=== PATIENT | male | born 1935 | race Caucasian/White ===

== ENCOUNTER 2017-08-23 03:58 | Emergency (ER) | payer MEDICARE, OTHER ==
[2014-12-08 15:04] VITALS: BMI 33.0
[~2017-08-23 03:58] MED LIST: ACETAMINOPHEN325 MG PO; GLUCOPHAGE500 MG PO; IPRAT-ALBUT 0.5-3 ML UPD; LEVAQUIN 5500 MG/100 PO; LEVAQUIN500 MG PO; TESSALON PERLE100 MG PO; ZYRTEC10 MG PO
[2017-08-23 04:41] LABS: BASOPHILS 0.4 % (0-2); EOSINOPHILS 1.6 % (0-7); HEMATOCRIT 42.4 % (42.0-54.0); HEMOGLOBIN 14.6 g/dL (13.5-17.5); IMMATURE GRANULOCYTES 0.2 % (0-5); LYMPHOCYTES 15.5 % (15-50); MCH 31.7 pg (26.0-34.0); MCHC 34.4 g/dL (31.0-37.0); MEAN PLATELET VOLUME 10.4 fL (7.4-10.4); MONOCYTES 7.1 % (2-11); NEUTROPHILS 75.2 % (40-80); RBC 4.61 10x6/uL (4.20-6.10); RDW 13.1 % (11.5-14.5); WBC 9.5 10x3/uL (4.8-10.8)
[2017-08-23 04:42] LABS: PLATELET COUNT 126 10x3/uL (130-400)
[2017-08-23 04:54] LABS: ALBUMIN 3.3 g/dL (3.4-5.0); ANION GAP 15.9 mmol/L (8-16); BILIRUBIN - TOTAL 1.71 mg/dL (0.2-1.3); CARBON DIOXIDE 23.1 mmol/L (21.0-32.0); CREATININE - SERUM 1.7 mg/dL (0.6-1.3)
[2017-08-23 05:17] LABS: APPEARANCE CLEAR (CLEAR); COLOR YELLOW (YELLOW); GLUCOSE 250 mg/dL (NEGATIVE); NITRITE NEGATIVE (NEGATIVE); PROTEIN TRACE mg/dL (NEGATIVE); SPECIFIC GRAVITY 1.025 (1.005-1.020)
[2017-08-23 05:18] LABS: BILIRUBIN NEGATIVE (NEGATIVE); KETONE NEGATIVE (NEGATIVE); UROBILINOGEN NORMAL (NORMAL)
[2017-08-23 05:20] LABS: BACTERIA FEW /hpf (NONE SEEN); EPITHELIAL CELLS 0-5 /hpf (0-5); WHITE CELLS - URINE 0-5 /hpf (0-5)
== END 2017-08-23 06:35 | disposition home or self-care (01) ==
LOC: D.ER 03:58
PROVIDERS: Emergency Medicine
DX: N23 Unspecified renal colic (principal); N13.30 Unspecified hydronephrosis; N17.9 Acute kidney failure, unspecified; N39.0 Urinary tract infection, site not specified; E11.9 Type 2 diabetes mellitus without complications

== ENCOUNTER → 2019-04-16 08:06 | Outpatient (CLI) | payer MEDICARE, OTHER ==
[2014-12-08 15:04] VITALS: BMI 33.0
== END | disposition home or self-care (01) ==
LOC: D.HCCARDIO 08:06
PROVIDERS: ATTEND Internal Medicine Cardiovascular Disease
DX: R06.09 Other forms of dyspnea (principal)

== ENCOUNTER → 2021-02-04 12:28 | Day surgery (SDC) | payer MEDICARE, OTHER ==
[2014-12-08 15:04] VITALS: BMI 33.0
--- NOTE | 2021-02-03 14:23 | NUR ---
CONFIRMED PT APPT TOMORROW ARRIVAL: 1234
--- NOTE | ~2021-02-04 | HEMODYNAMI ---
PATIENT:BERT MOLINA MEDICAL RECORD: [id number] : 33 LOCATION:[facility] ADMISSION DATE: 02/04/21 Generatedon:113:33 Patient name: BERT MOLINA Patient #: [id number] SSN: : [id number] Date of study: 02/04/2021 Page: Of Hemodynamic Procedure Report Patient Data Patient Demographics First Name: BERT Gender: Male Last Name: JESSE : 1935 Middle Initial: E Age: 85 year(s) Patient #: [id number] Race: Unknown Additional ID: [id number] Contact details [address]: [address] [place] [address] State: [place] City: [place] Zip code: [address] Admission Admission Data Admission Date: 02/04/2021 Admission Time: 12:28 Procedure Procedure Types Cath Procedure Peripheral Cath Diagnostic Procedure Miscellaneous Aspiration/Injection (Joint) Procedure Description Procedure Date Procedure Date: 02/04/2021 Procedure Start Time: 13:24 Procedure Staff Name Function Filipe Ruiz MD Performing Physician Dimitry Minaya RT Monitor DWANI AIKEN RT Monitor Procedure Data Cath Procedure Fluoroscopy Diagnostic fluoroscopy Total fluoroscopy Time: 0.3 time: 0.3 min min Diagnostic fluoroscopy Total fluoroscopy dose: 3 dose: 3 mGy mGy Contrast Material Contrast Material Type Amount (ml) Isovue 200 5 Hemodynamics Rest Pre Cath Intra NCS Post Cath Procedure Log Time Note 13:14:03 Dimitry Minaya RT (R) (CV) sent for patient. Start room use. 13:14:21 SAFE-T PLUS MYELOGRAM TRAY opened to sterile field. 13:15:11 Patient received from Other to IR Alert and oriented. Tansferred to table in Supine position. 13:15:15 Correct patient and procedure confirmed by team. 13:15:19 Full Disclosure recording started 13:15:20 - 13:15:22 Pre-procedure instructions explained to patient. 13:15:23 Pre-op teaching completed and patient verbalized understanding. 13:15:36 PT ALLERGIC TO PCN AND SULFA 13:15:43 Is patient on blood thinner?No 13:15:57 Left Hip was prepped with betadine and draped in sterile fashion. 13:23:40 Physician arrived 13:23:40 --------ALL STOP TIME OUT------ 13:23:41 Final Timeout: patient, procedure, and site verified with staff and physician. All members of the team are in agreement. 13:23:43 Left groin site verified by team. 13:23:48 Sedation plan: Local Anesthetic Medication:Lidocaine 13:23:56 Procedure started. 13:24:04 Local anesthetic to Left Hip with Lidocaine 1% by Filipe Ruiz MD.INITIAL ACCESS ONLY 13:30:45 Procedure ended.(Physican Out) 13:32:00 Fluoroscopy time 00.30 minutes. 13:32:05 Flurop Dose total: 3 13:32:05 Fluoroscopy dose: 3 mGy 13:32:11 Contrast amount:Isovue 200 5ml. 13:32:17 Post-op/insertion site Right Femoral artery dressed using a Mepilex dressing. 13:32:21 Post-op/insertion site Left Hip dressed using a Bandaid. 13:32:33 Procedure and supply charges have been captured, reviewed, submitted an d are correct. Device Usage Item Name Manufacture Quantity Catalog Hospital Part Current Minimal Lot# / Number Charge Number Stock Stock Serial# Code SAFE-T [employer] 1 [id number] PLUS MYELOGRAM TRAY Signature Audit [place] Stage Time Signature Unsigned Intra-Procedure 02/04/2021 DWAIN AIKEN RT 1:33:03 PM (R) [facility] [address] [place] [address]
== END | disposition home or self-care (01) ==
LOC: D.RAD 12:28
PROVIDERS: ATTEND Orthopaedic Surgery
DX: M16.12 Unilateral primary osteoarthritis, left hip (principal)